=== PATIENT | female | born 1955 | race Caucasian/White ===

== ENCOUNTER 2018-06-07 08:44 | Inpatient (IN) | payer OTHER ==
[~2018-06-07 08:44] MED LIST: CLINDAMYCIN 600 MG/D5W (PMX) 50 ML IVPB; PROPOFOL 1000 MG INJ
[2018-06-07] MEDS ORDERED: FENTAnyl 50 MCG/ML VIAL ×2 (09:22→09:23)
[2018-06-07] MEDS ORDERED: GLYCOPYRROLATE 0.4 MG INJ (09:22)
[2018-06-07] MEDS ORDERED: ROCURONIUM 50 MG INJ (09:22)
[2018-06-07] MEDS ORDERED: PROPOFOL 20 ML (09:22)
[2018-06-07] MEDS ORDERED: NEOSTIGMINE 3 MG/3 ML SYRINGE (09:22)
[2018-06-07] MEDS ORDERED: CEFAZOLIN 1 GM INJ (09:22)
[2018-06-07] MEDS ORDERED: ONDANSETRON 4 MG INJ (09:22)
[2018-06-07] MEDS ORDERED: MIDAZOLAM 1 MG/ML 2 ML INJ (09:22)
[2018-06-07] MEDS ORDERED: morphine SULFATE/PF (10 MG/10 ML) INJ (09:23)
[2018-06-07] MEDS ORDERED: ROPIVACAINE 0.5 % 30 ML VIAL (09:23)
[2018-06-07] MEDS ORDERED: DEXAMETHASONE 4 MG/ML 1 ML INJ (09:23)
[2018-06-07] MEDS ORDERED: BUPIVACAINE 0.75%/DEXT (SPINAL) 2 ML INJ (09:24)
[2018-06-07] MEDS ORDERED: DIPHENHYDRAMINE 50 MG INJ IV ×2 (10:30→11:30)
[2018-06-07] MEDS ORDERED: SENNA/DOCUSATE NA (8.6MG/50MG) TAB PO (10:30)
[2018-06-07] MEDS: ONDANSETRON 4 MG INJ IV ×5 (10:30→22:33)
[2018-06-07] MEDS ORDERED: BETHANECHOL 25 MG TAB PO (10:30)
[2018-06-07] MEDS ORDERED: NA PHOSPHATE/BIPHOS 133 ML ENEMA PR (10:30)
[2018-06-07] MEDS ORDERED: NALOXONE (0.4 MG/ML) INJ IV ×2 (10:30→11:30)
[2018-06-07] MEDS ORDERED: MAGNESIUM HYDROXIDE 30ML CUP PO (10:30)
[2018-06-07] MEDS ORDERED: LABETALOL HCL 20MG INJ IV (11:30)
[2018-06-07] MEDS ORDERED: EPHEDrine SULFATE 50 MG/5 ML SYG IV (11:30)
[2018-06-07] MEDS ORDERED: OXYCODONE/ACETAMINOPHEN (5/325) TAB PO ×2 (11:30)
[2018-06-07] MEDS ORDERED: MEPERIDINE 25 MG INJ IV (11:30)
[2018-06-07] MEDS ORDERED: ALBUTEROL 0.083% (NEB) 2.5 MG/3 ML AMP HHN (11:30)
[2018-06-07] MEDS ORDERED: HYDROmorphONE 1 MG/5 ML IV SYRINGE IV ×3 (11:30)
[2018-06-07] MEDS ORDERED: hydrALAzine 20 MG INJ IV (11:30)
[2018-06-07] MEDS ORDERED: MIDAZOLAM 1 MG/ML 2 ML INJ IV (11:30)
[2018-06-07] MEDS ORDERED: FENTAnyl 50 MCG/ML VIAL IV ×3 (11:30)
[2018-06-07] MEDS ORDERED: TRIMETHOBENZAMIDE 100 MG/ML VIAL IM (11:30)
[2018-06-07] MEDS ORDERED: IPRATROPIUM (NEB) 0.5 MG/2.5 ML AMP HHN (11:30)
[2018-06-07] MEDS: BACITRACIN 50000 UNITS INJ (11:36)
[2018-06-07] MEDS: POLYMYXIN B 500000 UNIT INJ (11:36)
[2018-06-07] MEDS: ASPIRIN (EC) 325 MG TAB PO (13:30)
[2018-06-07] MEDS: DOCUSATE SODIUM 100 MG CAP PO (13:30)
[2018-06-07] MEDS: SOD CHLORIDE 0.9% 1,000 ML IV ×2 (15:03→22:34)
[2018-06-07] MEDS: VANCOMYCIN 1 GM (PMX) 250 ML IVPB (18:46)
[2018-06-07] MEDS: METOCLOPRAMIDE 10 MG INJ IV (19:58)
[2018-06-07] MEDS: HYDROCORTISONE 1% 28 GM CR TOP (22:33)
[2018-06-07] MEDS: GABAPENTIN 100 MG CAP PO (22:33)
[2018-06-07] MEDS: CELECOXIB 100 MG CAP PO (22:33)
[2018-06-08] MEDS: METOCLOPRAMIDE 10 MG INJ IV (02:00)
[2018-06-08] MEDS: ONDANSETRON 4 MG INJ IV (04:30)
[2018-06-08] MEDS: SOD CHLORIDE 0.9% 1,000 ML IV ×2 (06:15→23:38)
[2018-06-08] MEDS: VANCOMYCIN 1 GM (PMX) 250 ML IVPB (06:15)
[2018-06-08 06:53] LABS: ADD MAN DIFF? NO
[2018-06-08 06:56] LABS: BASOPHILS % 0.2 % (0.0-2.0); HEMATOCRIT 31.1 % (37.0-47.0); HEMOGLOBIN 10.2 g/dl (12.0-16.0); LYMPHOCYTES # 1.1 10^3/ul (0.8-2.9); LYMPHOCYTES % 12.9 % (15.0-51.0); MEAN CORPUSCULAR HEMOGLOBIN 29.6 pg (29.0-33.0); MEAN CORPUSCULAR HGB CONC 32.8 g/dl (32.0-37.0); MEAN CORPUSCULAR VOLUME 90.1 fl (82.0-101.0); MEAN PLATELET VOLUME 9.8 fl (7.4-10.4); MONOCYTE # 0.6 10^3/ul (0.3-0.9); MONOCYTES % 7.3 % (0.0-11.0); NEUTROPHIL # 6.9 10^3/ul (1.6-7.5); NEUTROPHILS % 79.1 % (39.0-77.0); PLATELET COUNT 216 10^3/UL (140-415); RED BLOOD COUNT 3.45 10^6/ul (4.20-5.40); RED CELL DISTRIBUTION WIDTH 13.3 % (11.5-14.5)
[2018-06-08 06:56] LABS: WHITE BLOOD COUNT 8.7 10^3/ul (4.8-10.8)
[2018-06-08 07:27] LABS: ANION GAP 8 (8-16); BLOOD UREA NITROGEN 12 mg/dl (7-20); CALCIUM 8.3 mg/dl (8.4-10.2); CARBON DIOXIDE 23 mmol/L (21-31); CHLORIDE 110 mmol/L (97-110); CREATININE 0.54 mg/dl (0.44-1.00); GLUCOSE 106 mg/dl (70-220); POTASSIUM 4.1 mmol/L (3.5-5.1); SODIUM 137 mmol/L (135-144)
[2018-06-08] MEDS: HYDROCORTISONE 1% 28 GM CR TOP ×2 (09:00→21:01)
[2018-06-08] MEDS: GABAPENTIN 100 MG CAP PO ×2 (09:03→20:59)
[2018-06-08] MEDS: CELECOXIB 100 MG CAP PO ×2 (09:03→20:59)
[2018-06-08] MEDS: DOCUSATE SODIUM 100 MG CAP PO ×2 (09:03→20:59)
[2018-06-08] MEDS: ASPIRIN (EC) 325 MG TAB PO (09:03)
[2018-06-08] MEDS: FERROUS FUMARATE (SR) TAB PO ×2 (11:33→20:59)
[2018-06-08] MEDS: oxyCODONE 5 MG TAB PO ×5 (14:45→23:52)
[2018-06-08] MEDS: hydrOXYzine HCL 10 MG TAB PO (20:59)
[2018-06-09] MEDS: oxyCODONE 5 MG TAB PO ×5 (03:37→19:02)
[2018-06-09] MEDS: hydrOXYzine HCL 10 MG TAB PO ×2 (03:41→21:40)
[2018-06-09 06:48] LABS: ADD MAN DIFF? NO
[2018-06-09 06:52] LABS: BASOPHIL # 0.1 10^3/ul (0.0-0.1); BASOPHILS % 0.7 % (0.0-2.0); EOSINOPHILS # 0.1 10^3/ul (0.0-0.5); EOSINOPHILS % 1.1 % (0.0-7.0); HEMATOCRIT 31.6 % (37.0-47.0); HEMOGLOBIN 9.9 g/dl (12.0-16.0); LYMPHOCYTES # 2.2 10^3/ul (0.8-2.9); LYMPHOCYTES % 30.8 % (15.0-51.0); MEAN CORPUSCULAR HGB CONC 31.3 g/dl (32.0-37.0); MEAN CORPUSCULAR VOLUME 92.7 fl (82.0-101.0); MEAN PLATELET VOLUME 10.2 fl (7.4-10.4); MONOCYTE # 0.6 10^3/ul (0.3-0.9); MONOCYTES % 9.1 % (0.0-11.0); NEUTROPHIL # 4.1 10^3/ul (1.6-7.5); PLATELET COUNT 218 10^3/UL (140-415); RED BLOOD COUNT 3.41 10^6/ul (4.20-5.40); RED CELL DISTRIBUTION WIDTH 13.9 % (11.5-14.5)
[2018-06-09 07:21] LABS: ANION GAP 9 (8-16); BLOOD UREA NITROGEN 14 mg/dl (7-20); CALCIUM 8.3 mg/dl (8.4-10.2); CARBON DIOXIDE 27 mmol/L (21-31); CHLORIDE 108 mmol/L (97-110); CREATININE 0.74 mg/dl (0.44-1.00); GLUCOSE 104 mg/dl (70-220); POTASSIUM 4.2 mmol/L (3.5-5.1); SODIUM 140 mmol/L (135-144)
[2018-06-09] MEDS: TRANEXAMIC ACID 1,000 MG in D5W 100 ML AT INCISION X1 IVPB (07:32)
[2018-06-09] MEDS: PANTOPRAZOLE (EC) 40 MG TAB PO (07:32)
[2018-06-09] MEDS: TRANEXAMIC ACID 1,000 MG in D5W 100 ML AT CLOSURE X1 IVPB (07:32)
[2018-06-09] MEDS: METOCLOPRAMIDE 10 MG INJ IV ×3 (08:17→18:32)
[2018-06-09] MEDS: HYDROCORTISONE 1% 28 GM CR TOP ×2 (09:00→21:42)
[2018-06-09] MEDS: FERROUS FUMARATE (SR) TAB PO ×2 (09:00→21:40)
[2018-06-09] MEDS: GABAPENTIN 100 MG CAP PO ×2 (10:20→21:40)
[2018-06-09] MEDS: CELECOXIB 100 MG CAP PO ×2 (10:20→21:40)
[2018-06-09] MEDS: ASPIRIN (EC) 325 MG TAB PO (10:20)
[2018-06-09] MEDS: DOCUSATE SODIUM 100 MG CAP PO ×2 (10:21→21:40)
[2018-06-09] MEDS: SOD CHLORIDE 0.9% 1,000 ML IV (12:52)
[2018-06-10] MEDS: oxyCODONE 5 MG TAB PO ×3 (00:08→14:54)
[2018-06-10] MEDS: SOD CHLORIDE 0.9% 1,000 ML IV (00:10)
[2018-06-10] MEDS: METOCLOPRAMIDE 10 MG INJ IV ×2 (00:13→08:04)
[2018-06-10] MEDS: PANTOPRAZOLE (EC) 40 MG TAB PO (07:06)
[2018-06-10 07:10] LABS: ADD MAN DIFF? NO
[2018-06-10 07:14] LABS: BASOPHIL # 0.1 10^3/ul (0.0-0.1); BASOPHILS % 0.9 % (0.0-2.0); EOSINOPHILS # 0.1 10^3/ul (0.0-0.5); EOSINOPHILS % 1.5 % (0.0-7.0); HEMATOCRIT 29.8 % (37.0-47.0); HEMOGLOBIN 9.5 g/dl (12.0-16.0); LYMPHOCYTES # 1.4 10^3/ul (0.8-2.9); LYMPHOCYTES % 26.5 % (15.0-51.0); MEAN CORPUSCULAR HEMOGLOBIN 29.6 pg (29.0-33.0); MEAN CORPUSCULAR HGB CONC 31.9 g/dl (32.0-37.0); MEAN CORPUSCULAR VOLUME 92.8 fl (82.0-101.0); MEAN PLATELET VOLUME 9.8 fl (7.4-10.4); MONOCYTE # 0.5 10^3/ul (0.3-0.9); MONOCYTES % 9.8 % (0.0-11.0); NEUTROPHIL # 3.3 10^3/ul (1.6-7.5); NEUTROPHILS % 61.1 % (39.0-77.0); PLATELET COUNT 186 10^3/UL (140-415); RED BLOOD COUNT 3.21 10^6/ul (4.20-5.40); RED CELL DISTRIBUTION WIDTH 13.5 % (11.5-14.5)
[2018-06-10 07:14] LABS: WHITE BLOOD COUNT 5.4 10^3/ul (4.8-10.8)
[2018-06-10] MEDS: DOCUSATE SODIUM 100 MG CAP PO (08:04)
[2018-06-10] MEDS: BISACODYL 10 MG SUPP PR (08:04)
[2018-06-10] MEDS: CELECOXIB 100 MG CAP PO (08:04)
[2018-06-10] MEDS: ASPIRIN (EC) 325 MG TAB PO (08:04)
[2018-06-10] MEDS: GABAPENTIN 100 MG CAP PO (08:07)
[2018-06-10 08:16] LABS: ANION GAP 8 (8-16); BLOOD UREA NITROGEN 8 mg/dl (7-20); CALCIUM 8.5 mg/dl (8.4-10.2); CARBON DIOXIDE 27 mmol/L (21-31); CHLORIDE 107 mmol/L (97-110); CREATININE 0.56 mg/dl (0.44-1.00); GLUCOSE 98 mg/dl (70-220); POTASSIUM 4.2 mmol/L (3.5-5.1); SODIUM 138 mmol/L (135-144)
[2018-06-10] MEDS: HYDROCORTISONE 1% 28 GM CR TOP (09:00)
[2018-06-10] MEDS: FERROUS FUMARATE (SR) TAB PO (09:00)
== END 2018-06-10 15:30 | DRG 470 ==
LOC: REC 08:44 → MS1 14:20 → TEL 06-08 00:50
PROC: 0SRD0J9 Replacement of Left Knee Joint with Synthetic Substitute, Cemented, Open Approach (ICD-10-PCS; principal; 2018-06-07 10:30)
DX: M17.12 Unilateral primary osteoarthritis, left knee (principal); R21 Rash and other nonspecific skin eruption; R00.1 Bradycardia, unspecified; R11.2 Nausea with vomiting, unspecified
CPT/HCPCS: 73560; 80048; 84443; 85025; 86850; 86900; 86901; 87081; 88304; 88311; 93005; 97110; 97116; 97162; 97167; 97530